=== PATIENT | male | born 1990 | race Two or more races ===

== ENCOUNTER 2018-10-11 16:51 | Emergency (ER) | payer OTHER ==
[~2018-10-11] VITALS: Ht 177.8 cm; Wt 74.8 kg
[2018-10-11 19:30] VITALS: BP 124/75
== END 2018-10-11 20:20 | disposition home or self-care (01) ==
LOC: ER 17:04
DX: N43.3 Hydrocele, unspecified (principal)
CPT/HCPCS: 76870